=== PATIENT | male | born 2000 ===

== ENCOUNTER 2019-07-22 09:24 | Outpatient (REF) | payer OTHER, SELFPAY ==
[2019-07-22 19:13] LABS: Anion Gap 10.6 mmol/L (3-11); BUN 13 mg/dL (7-18); CO2 27.4 mmol/L (21.0-32.0); CREATININE 1.08 mg/dL (0.70-1.30); Chloride 102 mmol/L (98-107); Glucose 122 mg/dL (70-100); Potassium 4.1 mmol/L (3.5-5.1); Sodium 140 mmol/L (136-145)
[2019-07-22 19:21] LABS: Calcium 9.1 mg/dL (8.5-10.1)
== END 2019-07-22 09:44 ==
LOC: NCHCN 09:24
PROVIDERS: PCP Physician Assistant; Visit Provider Nurse Practitioner Family
DX: I10 Essential (primary) hypertension (principal)
CPT/HCPCS: 80048

== ENCOUNTER 2020-02-25 09:20 | Outpatient (REF) | payer OTHER, SELFPAY ==
[2020-02-25 18:48] LABS: Anion Gap 8.4 mmol/L (3-11); BUN 13 mg/dL (7-18); CO2 30.6 mmol/L (21.0-32.0); CREATININE 1.18 mg/dL (0.70-1.30); Calcium 9.1 mg/dL (8.5-10.1); Chloride 102 mmol/L (98-107); Glucose 95 mg/dL (74-106); Potassium 3.6 mmol/L (3.5-5.1); Sodium 141 mmol/L (136-145)
[2020-02-27 10:57] LABS: FSH 3.5 mIU/mL (1.4-18.1); LH 7.8 mIU/mL (1.5-9.3); Prolactin 14.5 ng/mL (2.1-17.7)
== END 2020-02-25 09:40 ==
LOC: NCHCN 09:20
PROVIDERS: PCP Nurse Practitioner Family; Visit Provider Nurse Practitioner Family
DX: I10 Essential (primary) hypertension (principal); R68.82 Decreased libido
CPT/HCPCS: 80048; 84403; 83001; 83002; 84146

== ENCOUNTER 2020-02-27 11:31 | Outpatient (REF) | payer OTHER, SELFPAY ==
[2020-03-04 07:50] LABS: Testosterone, Total 525 ng/dL (240-950)
== END 2020-02-27 11:51 ==
LOC: NCHCN 11:31
PROVIDERS: PCP Nurse Practitioner Family; Visit Provider Nurse Practitioner Family
DX: R68.82 Decreased libido (principal)
CPT/HCPCS: 84403

== ENCOUNTER 2020-04-21 14:20 | Outpatient (REF) | payer OTHER, SELFPAY ==
[2020-04-21 22:06] LABS: HCT 48.2 % (40.0-50.0); HGB 16.9 g/dL (13.5-17.5); Mean Corp. HGB Concentration 35.1 g/dL (32.0-36.0); Mean Corpuscular Hemoglobin 29.4 pg (27.0-33.0); Mean Corpuscular Volume 83.8 fL (80-95); Mean Platelet Volume 10.8 fL (8.0-11.0); Platelet Count 214 x1000/uL (130-400); RBC 5.75 m/cumm (4.50-6.00); RBC Distribution Width 12.7 % (11.8-14.1); White Blood Cell Count 6.24 k/cumm (4.4-10.8)
[2020-04-21 22:10] LABS: Uric Acid 8.4 mg/dL (3.5-7.2)
[2020-04-21 22:53] LABS: ESR 7 mm/hr (0-15)
[2020-04-23 10:19] LABS: Lyme Ab w Rflx to Lyme Confirm Negative (Negative)
== END 2020-04-21 14:40 ==
LOC: NCHCN 14:20
PROVIDERS: PCP Nurse Practitioner Family; Visit Provider Internal Medicine
DX: M13.179 Monoarthritis, not elsewhere classified, unspecified ankle and foot (principal)
CPT/HCPCS: 85027; 85652; 84550; 86140; 86618

== ENCOUNTER 2022-02-14 19:40 | Outpatient (REF) | payer OTHER, SELFPAY ==
[2022-02-14 20:33] LABS: ALT 54 U/L (16-63); AST 29 U/L (15-37); Albumin 3.8 g/dL (3.4-5.0); Alkaline Phosphatase 85 U/L (46-116); Anion Gap 9.8 mmol/L (3-11); BUN 13 mg/dL (7-18); Bilirubin, Total 0.3 mg/dL (0.2-1.0); CO2 27.2 mmol/L (21.0-32.0); CREATININE 0.9 mg/dL (0.70-1.30); Calcium 8.4 mg/dL (8.5-10.1); Calculated LDL 88 mg/dL (<100); Chloride 101 mmol/L (98-107); Cholesterol 200 mg/dL (<200); Glucose 148 mg/dL (74-106); HDL Cholesterol 61 mg/dL (40-60); Potassium 3.4 mmol/L (3.5-5.1); Sodium 138 mmol/L (136-145); Total Protein 7.2 g/dL (6.4-8.2); Triglyceride 259 mg/dL (<150)
== END 2022-02-14 19:41 | disposition home or self-care (01) ==
LOC: NCHCN 19:40
PROVIDERS: PCP Nurse Practitioner Family; Visit Provider Nurse Practitioner Family
DX: I10 Essential (primary) hypertension (principal)
CPT/HCPCS: 80053; 80061

== ENCOUNTER 2023-10-15 15:39 | Outpatient (REF) | payer OTHER, SELFPAY ==
[2023-10-15 19:36] LABS: ALT 54 U/L (16-63); AST 27 U/L (15-37); Alkaline Phosphatase 72 U/L (46-116); Anion Gap 5.8 mmol/L (3-11); BUN 16 mg/dL (7-18); Bilirubin, Total 0.4 mg/dL (0.2-1.0); CO2 31.2 mmol/L (21.0-32.0); Calcium 9.3 mg/dL (8.5-10.1); Calculated LDL 109 mg/dL (<100); Chloride 101 mmol/L (98-107); Cholesterol 225 mg/dL (<200); Estimated GFR 107.12 (mL/min/1.73m2); Glucose 101 mg/dL (74-106); HDL Cholesterol 103 mg/dL (40-60); Potassium 3.6 mmol/L (3.5-5.1); Sodium 138 mmol/L (136-145); Total Protein 8.2 g/dL (6.4-8.2); Triglyceride 67 mg/dL (<150)
== END 2023-10-15 15:40 | disposition home or self-care (01) ==
LOC: NCHCN 15:39
PROVIDERS: PCP Nurse Practitioner Family; Visit Provider Nurse Practitioner Family
DX: E78.5 Hyperlipidemia, unspecified (principal); I10 Essential (primary) hypertension
CPT/HCPCS: 80053; 80061

== ENCOUNTER 2025-01-28 16:59 | Outpatient (REF) | payer OTHER, SELFPAY ==
[2025-01-28 21:41] LABS: ALT 78 U/L (16-63); AST 39 U/L (15-37); Albumin 3.9 g/dL (3.4-5.0); Alkaline Phosphatase 88 U/L (46-116); Anion Gap 8.9 mmol/L (3-11); BUN 10 mg/dL (7-18); Bilirubin, Total 0.3 mg/dL (0.2-1.0); CO2 29.1 mmol/L (21.0-32.0); Calcium 9.6 mg/dL (8.5-10.1); Chloride 102 mmol/L (98-107); Estimated GFR 106.45 (mL/min/1.73m2); Glucose 106 mg/dL (74-106); Potassium 3.8 mmol/L (3.5-5.1); Sodium 140 mmol/L (136-145); Total Protein 7.9 g/dL (6.4-8.2)
[2025-01-28 22:02] LABS: Calculated LDL 107 mg/dL (<100); Cholesterol 203 mg/dL (<200); HDL Cholesterol 83 mg/dL (>or=40); Triglyceride 66 mg/dL (<150)
== END 2025-01-28 17:00 | disposition home or self-care (01) ==
LOC: NCHCN 16:59
PROVIDERS: PCP Nurse Practitioner Family; Visit Provider Nurse Practitioner Family
DX: I10 Essential (primary) hypertension (principal)
CPT/HCPCS: 80053; 80061

== ENCOUNTER 2025-02-06 17:44 | Outpatient (REF) | payer OTHER, SELFPAY ==
[2025-02-09 11:14] LABS: Hepatitis A Antibody IgM Negative (Negative); Hepatitis B Core Antibody Negative (Negative); Hepatitis B surface Ag Negative (Negative); Hepatitis C Ab w Rflx HCV PCR Negative (Negative)
== END 2025-02-06 17:45 | disposition home or self-care (01) ==
LOC: NCHCN 17:44
PROVIDERS: PCP Nurse Practitioner Family; Visit Provider Nurse Practitioner Family
DX: R79.89 Other specified abnormal findings of blood chemistry (principal)
CPT/HCPCS: 86704; 86709; 86803; 87340